=== PATIENT | female | born 1990 | race Caucasian/White ===

== ENCOUNTER 2017-03-10 06:28 | Inpatient (IN) | payer OTHER ==
[~2017-03-10] VITALS: Ht 149.9 cm; Wt 45.0 kg
[~2017-03-10 06:28] MED LIST: CHOL100062 PO; Calcium Carbonate PO; POTA20TA96 PO; PRENAT PO; UROCIT PO
[2017-03-10] MEDS ORDERED: ONDANSETRON 4 MG INJ IV STA (06:43)
--- NOTE | 2017-03-10 06:48 | ERA ---
ER Documentation Chief Complaint Date/Time DATE: 03/10/17 TIME: 06:44 Chief Complaint direct admit from [place] [facility] for Pyelonephritis, renal tubular acidosis Tp1 HPI 26-year-old female was sent from [facility] to be admitted to this hospital for pyelonephritis. Because there are no beds currently in the hospital should be housed in the emergency room will be under my care pending admission. Reviewed all the patient's EMR from [place]. She is being admitted for a mild urinary tract infection that has spread to her kidneys. She did have severe pain she said at the time. She was given 1 dose of morphine and actually has absolutely no pain whatsoever. She does have some nausea. Otherwise she feels well and was hoping to go home. It appears as though her vital signs have been stable throughout the duration of her course at [place]. ROS All systems reviewed and are negative except as per history of present illness. Medications Home Meds Active Scripts Potassium Citrate* (Urocit-K*) 5 Meq Tabsr, 10 MEQ PO BID for 30 Days, #60 TAB Prov:MELISA CASTRO MD 10/11/16 [Calcium Carbonate] 1.25 GM TAB No Conflict Check, 1.25 GM PO QID Prov:MELISA CASTRO MD 10/11/16 Reported Medications Cholecalciferol* (Vitamin D3*) 1,000 Unit Tablet, 2000 UNIT PO DAILY, TAB 09/15/16 Potassium Chloride* (Potassium Chloride*) 20 Meq Tablet.er, 20 MEQ PO TID, #2 TAB.SA 09/15/16 Multivit/Min/Fol Ac/Iron/Pren* ( S*) 1 Tab Tab, 1 TAB PO DAILY, TAB 09/15/16 Allergies Allergies: Coded Allergies: No Known Drug Allergies (Verified Allergy, Unknown, 10/07/16) PMhx/Soc History of Surgery: No Anesthesia Reaction: No Hx Neurological Disorder: No Hx Respiratory Disorders: No Hx Cardiac Disorders: No Hx Psychiatric Problems: No Hx Miscellaneous Medical Probl: No Hx Alcohol Use: No Hx Substance Use: No Hx Tobacco Use: No Physical Exam Vitals Vital Signs Date Time Temp Pulse Resp B/P Pulse Ox O2 Delivery O2 Flow Rate FiO2 03/10/17 06:31 97.4 70 18 102/58 100 Physical Exam Const: [] Very mild distress, appears uncomfortable Head: Atraumatic Eyes: Normal Conjunctiva ENT: Normal External Ears, Nose and Mouth. Neck: Full range of motion..~ No meningismus. Resp: Clear to auscultation bilaterally Cardio: Regular rate and rhythm, no murmurs Abd: Soft, very mild suprapubic tenderness without guarding or rebound, non distended. Normal bowel sounds Skin: No petechiae or rashes Back: No midline or flank tenderness Ext: No cyanosis, or edema Neur: Awake and alert and oriented 3, no focal deficits Psych: Normal Mood and Affect Procedures/MDM 26-year-old female with pyelonephritis. Pain control but nausea on arrival to ER. Administered Zofran as well as additional 500 mL of IV fluid. She will be admitted to the hospital Dr. Diallo for further management. Dr. Diallo has been notified of her arrival. I will continue to manage her symptoms until she is admitted. She received Rocephin at [place] and will not need another dose until approximately 24 hours after the first dose was given. Urine cultures from [place] are still pending. These will be followed to make sure that the Rocephin is appropriate antibiotic for the particular infection that she has. She is being admitted to the medical surgical floor. Departure Diagnosis: Primary Impression: Pyelonephritis Condition: Stable KAYLEEN MCGEE DO March 10, 2017 06:48
[2017-03-10] MEDS ORDERED: SOD CHLORIDE 0.9% 500 ML IV ONE (07:00)
[2017-03-10] MEDS ORDERED: morphine 2 MG INJ IV PRN (09:30)
[2017-03-10] MEDS ORDERED: HYDROCODONE/APAP (5/325) TAB PO PRN (09:30)
[2017-03-10] MEDS ORDERED: NACL 0.9% 3 ML SYG IV SCH (09:30)
[2017-03-10] MEDS ORDERED: ONDANSETRON 4 MG INJ IV PRN (09:30)
[2017-03-10] MEDS ORDERED: ACETAMINOPHEN 325 MG TAB PO PRN (09:30)
[2017-03-10] MEDS ORDERED: SOD CHLORIDE 0.9% 1,000 ML IV SCH (09:30)
[2017-03-10] MEDS: MULTIVIT/MIN/FOLATE/IRON/PREN TAB PO SCH (09:51)
[2017-03-10] MEDS: CHOLECALCIFEROL 1,000 UNIT TAB PO SCH (09:51)
[2017-03-10] MEDS: POTASSIUM CITRATE (SR) 5 MEQ TAB PO SCH ×2 (09:51→21:20)
[2017-03-10] MEDS: CEFTRIAXONE 1 GM/50 ML (PMX) 50 ML IVPB SCH (09:53)
--- NOTE | 2017-03-10 10:12 | CONS ---
DATE OF ADMISSION: 03/10/2017 DATE OF CONSULTATION: 03/10/2017 REFERRING PHYSICIAN: Dr. Hayes TYPE OF CONSULTATION: Nephrology. REASON FOR CONSULTATION: Renal tubular acidosis, hypokalemia, acute pyelonephritis. HISTORY OF PRESENT ILLNESS: This is a 26-year-old female who has a past medical history of renal tubular acidosis type 1 who has been on potassium citrate, Urocit-K 10 mEq p.o. b.i.d. Along with that, she has been also taking also potassium chloride 20 mEq p.o. t.i.d. The patient presented to the [facility] with a complaint of back pain, dysuria, fevers, weakness, fatigue and extremely tired. She is noted to have a dirty urinalysis and concern about acute pyelonephritis. She got transferred to the [facility] due to her insurance capitation and renal has been consulted for renal tubular acidosis, hypokalemia, acute pyelonephritis. At the time of my evaluation, she is currently hemodynamically stable. Denies complaining of back pain, nausea, dysuria, fever, chills. Denies any chest pain , palpitation, headache, dizziness, blurry vision, constipation, diarrhea, dysuria, increased urinary frequency. REVIEW OF SYSTEMS: As per HPI. Positive for back pain, dysuria, fever, chills , nausea. Other review of systems has been obtained and is negative except what is mentioned in the history of present illness. 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 Previous episodes of pyelonephritis. PAST SURGICAL HISTORY: None. SOCIAL HISTORY: Lives with her family, has a 4 kids, extremely stressed out with kids care. No smoking, alcohol or recreational drug use. FAMILY HISTORY: As per the patient, no family history of kidney disease or renal tubular acidosis runs in the family. PHYSICAL EXAMINATION: VITAL SIGNS: Temperature 97.1, heart rate is 73, respiration 18, blood pressure is 99/61. GENERAL: Awake, alert, in no acute distress. HEENT: Normal. Oropharynx clear. NECK: Supple, no JVD, no lymphadenopathy. LUNGS: Decreased breath sounds at both lung bases. No crackles, no wheezes. HEART: S1, S2, tachycardia, no murmur. ABDOMEN: Soft, nontender, nondistended. Bowel sounds are present. EXTREMITIES: No clubbing, cyanosis, or edema. BACK: The patient has severe CVA tenderness, right greater than the left. NEUROLOGICAL: Nonfocal, intact. PSYCHIATRIC: Appropriate affect and mood. SKIN: No allergic rash. CHIEF COMPLAINT: Positive for joint pain, diffuse muscle aches, tender to palpation all over the body. LABORATORY DATA/DIAGNOSTIC IMAGING: The patient has no labs done at the [facility], currently labs are pending, but her labs at the [facility] has been reviewed and is positive for acidosis and hypokalemia. IMPRESSION: This is a 26-year-old female who has been getting admitted for acute pyelonephritis. She was noted to have hypokalemia and also has a history of renal tubular acidosis which has been getting worse at this point. Renal has been consulted for: 1. Worsening metabolic acidosis likely secondary to renal tubular acidosis type 1. 2. Hypokalemia secondary to type 1 distal ____ . 3. Acute pyelonephritis. 4. History of previous episodes of pyelonephritis. 5. History of renal tubular acidosis type 1 who has been on Urocit-K10 mEq p.o. b.i.d. at home. PLAN: Thank you, Dr. Hayes, for this consultation. 1. I will continue the patient on Urocit-K 10 mEq p.o. b.i.d. for her renal tubular acidosis. 2. I will also continue her on potassium chloride 10 mEq p.o. t.i.d. for hypokalemia. Along with that I will switch her IV fluids from NS to D5 half NS with KCl 10 mEq to run at 100 mL hour. 3. IV antibiotics, ceftriaxone has been started for acute pyelonephritis. The patient is currently ordered to have some of the labs including a UA and urinalysis. She will be followed up along with hospitalist service. Thank you, Dr. Hayes, for this consultation. I will continue to follow this patient along with the hospitalist service. She is currently seen in the emergency room and will be getting admitted to the med/surg floor. Total Time spent in this patient evaluation, making plan of care, communicating with patient at bedside and communicating with Nursing staff took more than 60 minutes. All questions answerred with patient Dictated By: KOMAL BELLE MD, KP/ZARINA Conf#: [id number] DID#: [id number] MTDAntonio
--- NOTE | 2017-03-10 11:46 | HP ---
DATE OF ADMISSION: 03/10/2017 TIME OF EVALUATION: 9 a.m. REASON FOR ADMISSION: Transfer from [facility] because of suspected pyelonephritis. CONSULTANTS: 1. Dr. Kishor Schwartz, Nephrology. 2. Dr. Brayden Solano, Urology. HISTORY OF PRESENT ILLNESS: This is a 26-year-old female with past medical history of renal tubular acidosis who has been on bicarbonate replacement and potassium replacement who went to [facility] with a chief complaint of epigastric abdominal pain and low back pain that started on 03/09/2017 in the afternoon. The patient verbalized that she had this abdominal pain started all of a sudden without any triggering factors. The patient verbalized the abdominal pain as sharp and excruciating. The patient also verbalized a few episodes of nausea and nonbilious, nonbloody vomiting. The patient denied any fevers. However, the patient was complaining of chills. The patient denied any dysuria, hematuria, pyuria. The patient denied any sick contacts. In the emergency room at [facility], the patient was noticed to have a positive urinalysis. The patient was suspected to have a pyelonephritis. Hence, the patient transferred to [facility] because of insurance reasons. 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 PAST SURGICAL HISTORY: None. HOME MEDICATIONS: 1. Potassium chloride 20 mEq p.o. t.i.d. 2. Potassium citrate 10 mEq p.o. b.i.d. 3. Vitamin D3 2000 units p.o. daily. ALLERGIES: NO KNOWN DRUG ALLERGIES. SOCIAL HISTORY: The patient lives at home with her family. Denies any history of tobacco, alcohol, or illicit drugs. The patient has 4 kids. REVIEW OF SYSTEMS: A 12-point review of systems were made. Review of systems are negative other than what is mentioned in the history of present illness. PHYSICAL EXAMINATION: VITAL SIGNS: Temperature 98.1, pulse rate 75, respiratory rate 18, blood pressure 99/66, oxygen saturation 100% on room air. GENERAL: This is a well-built, well-nourished female lying in bed in no apparent distress. HEENT: Head normocephalic and atraumatic. Eyes: Anicteric sclerae. Conjunctivae clear. ENT: Nasal septum is midline. Oral mucosa is moist. NECK: Supple. No JVD noticed. RESPIRATORY: Bilaterally clear to auscultation. No adventitious breath sounds. No use of accessory muscles of respiration. CARDIAC: Regular rate and rhythm. No murmurs. ABDOMEN: Soft. Bowel sounds positive in all 4 quadrants. Minimal epigastric tenderness. GENITOURINARY: Bilateral CVA tenderness, right greater than left. EXTREMITIES: No cyanosis, no clubbing, no edema. Peripheral pulses palpable. NEUROLOGIC: The patient is awake, alert, and oriented. Cranial nerves are grossly intact. LABORATORY AND DIAGNOSTIC DATA: Pending lab and diagnostic data from [facility]. IMPRESSION: This is a 26-year-old female with known history of renal tubular acidosis type 1 and prior history of pyelonephritis who came to the emergency room with complaints of abdominal pain and back pain who was found to have evidence of urinary tract infection and underlying pyelonephritis. She will be admitted here for further treatment and evaluation. ASSESSMENT AND PLAN: 1. Acute urinary tract infection with possible underlying pyelonephritis. The patient was started on empiric antibiotics. Case cultures will be ordered. A urology consult will be obtained. The patient will be adequately hydrated using IV fluids. 2. Renal tubular acidosis type 1. The patient will be placed on a routine potassium supplements. Nephrology consult will be obtained. Plan. The patient will be admitted to inpatient medical/surgical floor. The patient will be started on a regular diet. The patient will be started on DVT prophylaxis and gastrointestinal prophylaxis. The patient will remain a FULL CODE. Activities will be as tolerated. The rest of the patient's management will be based on clinical course, the results of diagnostic studies, and inputs from consultants. Based on the patient's clinical presentation, she most probably requires at least 1 midnight's stay for further management and evaluation of her clinical presentation. The case and management of this patient was fully discussed with Dr. Márquez. KIMBERLY MÁRQUEZ MD, AM/ZARINA Conf#: [id number] DID#: [id number] MTDD
[2017-03-10 11:51] LABS: ADD SCAN DIFF NO
[2017-03-10 11:56] LABS: BASOPHIL # 0.1 10^3/ul (0.0-0.1); BASOPHILS % 0.5 % (0.0-2.0); EOSINOPHILS # 0.1 10^3/ul (0.0-0.5); EOSINOPHILS % 1.2 % (0.0-7.0); HEMATOCRIT 42.6 % (37.0-47.0); HEMOGLOBIN 13.3 g/dl (12.0-16.0); LYMPHOCYTES # 1.7 10^3/ul (0.8-2.9); LYMPHOCYTES % 16.6 % (15.0-51.0); MEAN CORPUSCULAR HEMOGLOBIN 25.9 pg (29.0-33.0); MEAN CORPUSCULAR HGB CONC 31.2 g/dl (32.0-37.0); MEAN PLATELET VOLUME 11.8 fl (7.4-10.4); MONOCYTE # 0.7 10^3/ul (0.3-0.9); MONOCYTES % 7.3 % (0.0-11.0); NEUTROPHIL # 7.5 10^3/ul (1.6-7.5); PLATELET COUNT 321 10^3/UL (140-415); RED BLOOD COUNT 5.13 10^6/ul (4.20-5.40); WHITE BLOOD COUNT 10.1 10^3/ul (4.8-10.8)
[2017-03-10] MEDS ORDERED: POTA10TA6 PO (12:05)
[2017-03-10] MEDS ORDERED: POTA20TA96 PO (12:06)
[2017-03-10] MEDS ORDERED: CALC300T4 PO (12:07)
[2017-03-10] MEDS ORDERED: CALC-143 PO (12:07)
[2017-03-10] MEDS ORDERED: CHOL100062 PO (12:09)
[2017-03-10 12:17] LABS: ALBUMIN 4.4 g/dl (3.3-4.9)
[2017-03-10 12:20] LABS: BILIRUBIN,INDIRECT 0.5 mg/dl (0-1.1); BILIRUBIN,TOTAL 0.5 mg/dl (0.2-1.3); CREATININE 0.77 mg/dl (0.44-1.00); TOTAL PROTEIN 7.7 g/dl (6.1-8.1)
[2017-03-10 12:21] LABS: ALBUMIN/GLOBULIN RATIO 1.33; CALCIUM 7.8 mg/dl (8.4-10.2); PHOSPHORUS 2.6 mg/dl (2.5-4.9); POTASSIUM 2.6 mmol/L (3.5-5.1)
[2017-03-10 12:22] LABS: MAGNESIUM 1.8 mg/dl (1.7-2.5)
--- NOTE | 2017-03-10 13:02 | RADRPT ---
PROCEDURE: Renal US. CLINICAL INDICATION: Flank pain, pyelonephritis. TECHNIQUE: Multiple sonographic images of the kidneys were obtained. The images were reviewed on a PACS workstation. COMPARISON: CT October 08, 2016 and ultrasound October 08, 2016 FINDINGS: The right kidney measures 9.0 cm. The left kidney measures 9.2 cm. Nephrocalcinosis throughout both kidneys continues to be identified. Moderate left hydronephrosis is identified. Questionable, mild right hydronephrosis is seen. No gross solid masses are seen. The bladder is filled with a moderate amount of urine and has an unremarkable appearance. IMPRESSION: Continued extensive nephrocalcinosis throughout both kidneys. Moderate left hydronephrosis and questionable mild right hydronephrosis. Etiology is uncertain. If further characterization is needed repeat CT could be helpful. RPTAT: AA .Piotr Tarango MD, Date Time Electronically viewed and signed by .Piotr Tarango MD, on 03/10/2017 13:02 .P/
[2017-03-10] MEDS: POTASSIUM CHLORIDE (SR) 20 MEQ TAB PO SCH ×2 (13:35→20:32)
[2017-03-10] MEDS: D5W-0.45 NACL + KCL 10 MEQ 1,000 ML IV SCH ×2 (13:36→21:21)
--- NOTE | 2017-03-10 15:18 | CONS ---
DATE OF ADMISSION: 03/10/2017 DATE OF CONSULTATION: 03/10/2017 TYPE OF CONSULTATION: Urology REQUESTING PHYSICIAN: Parker Hayes MD Dear Dr. Hayes: Thank you for asking me to see this patient in urological consultation. HISTORY OF PRESENT ILLNESS: This is a 26-year-old female who initially presented to [facility] complaining of epigastric pain with nausea and vomiting. She was transferred to [facility] because of her insurance. The patient also stated that she did have some chills and the urinalysis that was done showed positive nitrite; therefore, the patient was suspected to have pyel onephritis. PAST MEDICAL HISTORY: Very significant in that she does have a history of renal tubular acidosis ty pe 1 and she does have numerous stones in both kidneys. She did have a CT scan of her abdomen and p pradip back in October and that showed the kidneys to be full of stones on both sides. The patient has been seeing a electro winning operator and has been on potassium citrate and also potassium chloride. PAST SURGICAL HISTORY: The patient denies having any prior surgery. ALLERGIES: SHE HAS NO KNOWN DRUG ALLERGIES. SOCIAL HISTORY: She lives at home with her family. She done does not smoke or drink alcohol. Ther e is no history of drug abuse. She is a 4, para 4, all normal deliveries. REVIEW OF SYSTEMS: A 12-point review of system was made and they are all negative, except hat is me ntioned in the history of present illness. PHYSICAL EXAMINATION: GENERAL: Reveals a 26-year-old female. At the present, she states that she has no pain. She is fe eling better. VITAL SIGNS: Her temperature is 98.1, pulse rate 75, respirations 18, blood pressure 99/66. She we ighs 45 kg. She is 69 inches tall. HEAD AND NECK: Unremarkable. There is no cervical adenopathy and the neck is supple. ABDOMEN: Soft. There is no abdominal mass palpable and there is no tenderness at the present and n o flank tenderness. PELVIC: I did a pelvic exam on her. There is no vaginal discharge and no tenderness. EXTREMITIES: Reveal no edema, no varicose veins, and no clubbing. NEUROLOGIC: She has no neurological signs or symptoms. LABORATORY DATA: CBC shows a white count of 10.1, hemoglobin 13.3, hematocrit 42.6, platelet count 321,000. The BUN is 11, creatinine 0.77, sodium 145, potassium 2.6, chloride 116, CO2 of 15. The s kathy hCG is negative. IMAGING: The patient underwent a renal ultrasound and that showed continued extensive nephrocalcino sis throughout both kidneys, moderate left hydronephrosis and questionable mild right hydronephrosis , etiology is uncertain. If further characterization is needed, a repeat CT could be helpful. IMPRESSION: Renal tubular acidosis type I, bilateral extensive nephrocalcinosis, moderate left hydr onephrosis, mild right hydronephrosis and the patient does have hypokalemia. The patient is getting potassium citrate and potassium chloride as well and potassium in her IV. From a urological standp oint, the last time she was in the hospital, she had a very distended urinary bladder. At the prese nt, I would recommend that just to make sure if she does have a urinary tract infection, do straight catheterization and collect the urine for culture and sensitivity, and then cover her with antibiot ic based on the culture. As far as her kidney problems, she will need to follow up with her nephrol ogist and continue her potassium citrate and potassium chloride. Dictated By: ELISSA GONZALEZ/ZARINA Conf#: [id number] DID#: [id number]
[2017-03-10 17:12] VITALS: PULSE 71; TEMP 97.9
[2017-03-10 17:12] LABS: ADD UMIC YES; URINE BILIRUBIN (Dip) NEGATIVE (NEGATIVE); URINE BLOOD (Dip) TRACE (NEGATIVE); URINE COLOR LT. YELLOW (YELLOW); URINE GLUCOSE (Dip) NEGATIVE (NEGATIVE); URINE KETONES (Dip) NEGATIVE (NEGATIVE); URINE LEUKOCYTE ESTERASE (Dip) 2+ (NEGATIVE); URINE NITRITE (Dip) NEGATIVE (NEGATIVE); URINE TOTAL PROTEIN (Dip) NEGATIVE (NEGATIVE); URINE UROBILINOGEN (Dip) 0.2 E.U./dL (0.1-1.0)
[2017-03-10 17:22] LABS: URINE RBCS 0-2 /HPF (0)
[2017-03-10 17:23] LABS: SQUAMOUS EPITHELIAL CELL,UR RARE
[2017-03-10] MEDS: FAMOTIDINE 20 MG TAB PO SCH (20:32)
[2017-03-10 21:48] VITALS: BP 95/61; RESP 16
[2017-03-10 21:57] VITALS: Ht 149.9 cm; Wt 45.0 kg
[2017-03-11] MEDS: D5W-0.45 NACL + KCL 10 MEQ 1,000 ML IV SCH ×2 (05:00→09:08)
[2017-03-11 07:51] VITALS: BP 101/57; RESP 14
[2017-03-11] MEDS: POTASSIUM CITRATE (SR) 5 MEQ TAB PO SCH ×2 (09:07→20:36)
[2017-03-11] MEDS: POTASSIUM CHLORIDE (SR) 20 MEQ TAB PO SCH ×3 (09:07→20:32)
[2017-03-11] MEDS: MULTIVIT/MIN/FOLATE/IRON/PREN TAB PO SCH (09:07)
[2017-03-11] MEDS: FAMOTIDINE 20 MG TAB PO SCH ×2 (09:07→20:35)
[2017-03-11] MEDS: CHOLECALCIFEROL 1,000 UNIT TAB PO SCH (09:07)
[2017-03-11] MEDS: CEFTRIAXONE 1 GM/50 ML (PMX) 50 ML IVPB SCH (09:08)
--- NOTE | 2017-03-11 10:46 | CONS ---
Date/Time of Note Date/Time of Note DATE: 03/11/17 TIME: 10:40 Assessment/Plan Assessment/Plan Additional Assessment/Plan 1. Worsening metabolic acidosis likely secondary to renal tubular acidosis type 1. 2. Hypokalemia secondary to type 1 distal RTA 3. Acute pyelonephritis. 4. History of previous episodes of pyelonephritis. 5. History of renal tubular acidosis type 1 who has been on Urocit-K10 mEq p.o. b.i.d. at home. PLAN: continue K Citrate and K replacement Yesteday and K and HCo3 was very low, will order stat for today Continue IVF with KCl if K and HCO3 low then keep pt in house for it will follo wup IV abx for pyelonephritis Consultation Date/Type/Reason Admit Date/Time March 10, 2017 at 09:10 Initial Consult Date March Type of Consultation: NEPHROLOGY Reason for Consultation Renal tubular acidosis, Hypokalemia Referring Provider: JURGEN MÁRQUEZ 24 HR Interval Summary Free Text/Dictation doing ok, BP stable on IV abx , K low and HCo3 was low from yesterday Exam/Review of Systems Vital Signs Vitals Vital Signs Date Time Temp Pulse Resp B/P Pulse Ox O2 Delivery O2 Flow Rate FiO2 03/11/17 07:51 98.7 61 14 101/57 96 03/10/17 17:12 Room Air Intake and Output 03/10/17 03/10/17 03/11/17 15:00 23:00 07:00 Intake Total 50 ml 1000 ml 1090 ml Balance 50 ml 1000 ml 1090 ml Exam GENERAL: Awake, alert, in no acute distress. HEENT: Normal. Oropharynx clear. NECK: Supple, no JVD, no lymphadenopathy. LUNGS: Decreased breath sounds at both lung bases. No crackles, no wheezes. HEART: S1, S2, tachycardia, no murmur. ABDOMEN: Soft, nontender, nondistended. Bowel sounds are present. EXTREMITIES: No clubbing, cyanosis, or edema. BACK: The patient has severe CVA tenderness, right greater than the left. NEUROLOGICAL: Nonfocal, intact. PSYCHIATRIC: Appropriate affect and mood. SKIN: No allergic rash. Results Result Diagram: 03/10/17 1139 03/10/17 1139 Results 24 hrs Laboratory Tests Test 03/10/17 11:39 03/10/17 16:44 White Blood Count 10.1 # Red Blood Count 5.13 Hemoglobin 13.3 Hematocrit 42.6 Mean Corpuscular Volume 83.0 Mean Corpuscular Hemoglobin 25.9 L Mean Corpuscular Hemoglobin Concent 31.2 L Red Cell Distribution Width 16.0 H Platelet Count 321 Mean Platelet Volume 11.8 #H Neutrophils % 74.0 Lymphocytes % 16.6 Monocytes % 7.3 Eosinophils % 1.2 Basophils % 0.5 Nucleated Red Blood Cells % 0.0 Neutrophils # 7.5 Lymphocytes # 1.7 Monocytes # 0.7 Eosinophils # 0.1 Basophils # 0.1 Nucleated Red Blood Cells # 0.0 Sodium Level 145 H Potassium Level 2.6 *L Chloride Level 116 H Carbon Dioxide Level 15 L Anion Gap 17 H Blood Urea Nitrogen 11 Creatinine 0.77 Glucose Level 114 Lactic Acid Level 2.1 Calcium Level 7.8 L Phosphorus Level 2.6 Magnesium Level 1.8 Total Bilirubin 0.5 Direct Bilirubin 0.00 Indirect Bilirubin 0.5 Aspartate Amino Transf (AST/SGOT) 21 Alanine Aminotransferase (ALT/SGPT) 22 Alkaline Phosphatase 216 H Total Protein 7.7 Albumin 4.4 Globulin 3.30 H Albumin/Globulin Ratio 1.33 Vitamin D 1,25-Dihydroxy 42.1 Serum HCG, Qualitative NEGATIVE Urine Color LT. YELLOW Urine Clarity CLEAR Urine pH 7.5 Urine Specific [place] 1.010 Urine Ketones NEGATIVE Urine Nitrite NEGATIVE Urine Bilirubin NEGATIVE Urine Urobilinogen 0.2 E.U./dL Urine Leukocyte Esterase 2+ H Urine Microscopic RBC 0-2 Urine Microscopic WBC 2-5 Urine Squamous Epithelial Cells RARE Urine Hemoglobin TRACE Urine Glucose NEGATIVE Urine Total Protein NEGATIVE Medications Medications Current Medications Ondansetron HCl (Zofran Inj) 4 mg Q6H PRN IV NAUSEA AND/OR VOMITING; Start 03/10 at 09:30 Acetaminophen (Tylenol Tab) 650 mg Q6H PRN PO PAIN LEVEL 1-3 OR FEVER; Start at 09:30 Acetaminophen/ Hydrocodone Bitart ([place] (5/325)) 1 tab Q6H PRN PO MODERATE PAIN LEVEL 4-6; Start 03/10/17 at 09:30 Morphine Sulfate (morphine) 2 mg Q4H PRN IV SEVERE PAIN LEVEL 7-10; Start at 09:30 Famotidine 20 mg 20 mg Q12 PO Last administered on 03/11/17 09:07; Admin Dose 20 MG; Start 03/10/17 at 21:00 Ceftriaxone Sodium (Rocephin) 50 ml @ 100 mls/hr Q24H IVPB Last administered on 03/11/17 09:08; Admin Dose 100 MLS/HR; Start 03/10/17 at 09:30 Cholecalciferol (Vitamin D) 2,000 unit DAILY PO Last administered on 03/11/17 09:07; Admin Dose 2,000 UNIT; Start 03/10/17 at 09:30 Prenat Multivit/ [place]/Iron/Folic Ac ( S) 1 tab DAILY PO Last administered on 03/11/17 09:07; Admin Dose 1 TAB; Start 03/10/17 at 09:30 Potassium Chloride (Klor-Con 20) 20 meq TID PO Last administered on 03/11/17 09 :07; Admin Dose 20 MEQ; Start 03/10/17 at 13:00 Potassium Citrate 10 meq 10 meq BID PO Last administered on 03/11/17 09:07; Admin Dose 10 MEQ; Start 03/10/17 at 09:30 Potassium Chloride/Dextrose/ Sod Cl (D5-1/2ns + KCl 10 Meq) 1,000 ml @ 100 mls/ hr Q10H IV Last administered on 03/11/17 09:08; Admin Dose 100 MLS/HR; Start at 10:00 KOMAL BELLE MD March 11, 2017 10:46
[2017-03-11 11:54] LABS: ADD SCAN DIFF NO
[2017-03-11 11:56] LABS: BASOPHIL # 0.1 10^3/ul (0.0-0.1); BASOPHILS % 0.8 % (0.0-2.0); EOSINOPHILS # 0.2 10^3/ul (0.0-0.5); EOSINOPHILS % 2.7 % (0.0-7.0); HEMOGLOBIN 12.8 g/dl (12.0-16.0); LYMPHOCYTES # 2.2 10^3/ul (0.8-2.9); LYMPHOCYTES % 29.1 % (15.0-51.0); MEAN CORPUSCULAR HEMOGLOBIN 25.8 pg (29.0-33.0); MEAN CORPUSCULAR HGB CONC 30.5 g/dl (32.0-37.0); MEAN CORPUSCULAR VOLUME 84.5 fl (82.0-101.0); MEAN PLATELET VOLUME 11.6 fl (7.4-10.4); MONOCYTE # 0.8 10^3/ul (0.3-0.9); MONOCYTES % 10.9 % (0.0-11.0); NEUTROPHIL # 4.2 10^3/ul (1.6-7.5); NEUTROPHILS % 56.1 % (39.0-77.0); PLATELET COUNT 317 10^3/UL (140-415); RED BLOOD COUNT 4.97 10^6/ul (4.20-5.40); RED CELL DISTRIBUTION WIDTH 16.3 % (11.5-14.5); WHITE BLOOD COUNT 7.5 10^3/ul (4.8-10.8)
[2017-03-11 12:17] LABS: CREATININE 0.85 mg/dl (0.44-1.00)
[2017-03-11 12:18] LABS: CALCIUM 7.6 mg/dl (8.4-10.2); MAGNESIUM 1.6 mg/dl (1.7-2.5)
[2017-03-11 12:31] LABS: POTASSIUM 2.9 mmol/L (3.5-5.1)
[2017-03-11] MEDS ORDERED: POTASSIUM CHLORIDE 250 ML IVPB ONE (13:00)
--- NOTE | 2017-03-11 13:26 | PN ---
Date/Time of Note Date/Time of Note DATE: 03/11/17 TIME: 13:25 Assessment/Plan VTE Prophylaxis VTE Prophylaxis Intervention: SCD's Lines/Catheters IV Catheter Type (from [facility]): Peripheral IV Urinary Cath still in place: No Assessment/Plan Chief Complaint/Hosp Course 1. Moderate left hydronephrosis and questionable mild right hydronephrosis. Continue antibiotics. 2. Renal tubular acidosis, type 1. Being followed by Nephrology. On bicarbonate replacement and routine potassium supplement. 3. Nephrocalcinosis of B/L kidneys. Being followed by Urology. No evidence of any obstruction. 4. Fluids, electrolytes, and nutrition. Regular diet. 5. DVT prophylaxis. B/L SCDs. 6. Gastrointestinal prophylaxis. Histamine 2 receptor blockers. Plan. Continue antibiotics. Replete potassium and magnesium. Continue IVFs. Await clearance from Nephrology before discharge. Case discussed with Dr. Hayes. Problems: Subjective 24 Hr Interval Summary Free Text/Dictation Denies any abdominal pain. Denies any dysuria. Exam/Review of Systems Vital Signs Vitals Vital Signs Date Time Temp Pulse Resp B/P Pulse Ox O2 Delivery O2 Flow Rate FiO2 03/11/17 07:51 98.7 61 14 101/57 96 03/10/17 17:12 Room Air Intake and Output 03/10/17 03/10/17 03/11/17 14:59 22:59 06:59 Intake Total 50 ml 1000 ml 1090 ml Balance 50 ml 1000 ml 1090 ml Exam GENERAL: This is a well-built, well-nourished female lying in bed in no apparent distress. HEENT: Head normocephalic and atraumatic. Eyes: Anicteric sclerae. Conjunctivae clear. ENT: Nasal septum is midline. Oral mucosa is moist. NECK: Supple. No JVD noticed. RESPIRATORY: Bilaterally clear to auscultation. No adventitious breath sounds. No use of accessory muscles of respiration. CARDIAC: Regular rate and rhythm. No murmurs. ABDOMEN: Soft. Bowel sounds positive in all 4 quadrants. Minimal epigastric tenderness. GENITOURINARY: No CVA tenderness. EXTREMITIES: No cyanosis, no clubbing, no edema. Peripheral pulses palpable. NEUROLOGIC: The patient is awake, alert, and oriented. Cranial nerves are grossly intact. Results Result Diagram: 03/11/17 1115 03/11/17 1115 Results 24 hrs Laboratory Tests Test 03/10/17 16:44 03/11/17 11:15 Urine Color LT. YELLOW Urine Clarity CLEAR Urine pH 7.5 Urine Specific [place] 1.010 Urine Ketones NEGATIVE Urine Nitrite NEGATIVE Urine Bilirubin NEGATIVE Urine Urobilinogen 0.2 E.U./dL Urine Leukocyte Esterase 2+ H Urine Microscopic RBC 0-2 Urine Microscopic WBC 2-5 Urine Squamous Epithelial Cells RARE Urine Hemoglobin TRACE Urine Glucose NEGATIVE Urine Total Protein NEGATIVE White Blood Count 7.5 # Red Blood Count 4.97 Hemoglobin 12.8 Hematocrit 42.0 Mean Corpuscular Volume 84.5 Mean Corpuscular Hemoglobin 25.8 L Mean Corpuscular Hemoglobin Concent 30.5 L Red Cell Distribution Width 16.3 H Platelet Count 317 Mean Platelet Volume 11.6 H Neutrophils % 56.1 Lymphocytes % 29.1 Monocytes % 10.9 Eosinophils % 2.7 Basophils % 0.8 Nucleated Red Blood Cells % 0.0 Neutrophils # 4.2 Lymphocytes # 2.2 Monocytes # 0.8 Eosinophils # 0.2 Basophils # 0.1 Nucleated Red Blood Cells # 0.0 Sodium Level 141 Potassium Level 2.9 *L Chloride Level 110 Carbon Dioxide Level 17 L Anion Gap 17 H Blood Urea Nitrogen 13 Creatinine 0.85 Glucose Level 71 # Calcium Level 7.6 L Magnesium Level 1.6 L Medications Medications Current Medications Ondansetron HCl (Zofran Inj) 4 mg Q6H PRN IV NAUSEA AND/OR VOMITING; Start 03/10 at 09:30 Acetaminophen (Tylenol Tab) 650 mg Q6H PRN PO PAIN LEVEL 1-3 OR FEVER; Start at 09:30 Acetaminophen/ Hydrocodone Bitart ([place] (5/325)) 1 tab Q6H PRN PO MODERATE PAIN LEVEL 4-6; Start 03/10/17 at 09:30 Morphine Sulfate (morphine) 2 mg Q4H PRN IV SEVERE PAIN LEVEL 7-10; Start at 09:30 Famotidine 20 mg 20 mg Q12 PO Last administered on 03/11/17 09:07; Admin Dose 20 MG; Start 03/10/17 at 21:00 Ceftriaxone Sodium (Rocephin) 50 ml @ 100 mls/hr Q24H IVPB Last administered on 03/11/17 09:08; Admin Dose 100 MLS/HR; Start 03/10/17 at 09:30 Cholecalciferol (Vitamin D) 2,000 unit DAILY PO Last administered on 03/11/17 09:07; Admin Dose 2,000 UNIT; Start 03/10/17 at 09:30 Prenat Multivit/ [place]/Iron/Folic Ac ( S) 1 tab DAILY PO Last administered on 03/11/17 09:07; Admin Dose 1 TAB; Start 03/10/17 at 09:30 Potassium Chloride (Klor-Con 20) 20 meq TID PO Last administered on 03/11/17 12 :26; Admin Dose 20 MEQ; Start 03/10/17 at 13:00 Potassium Citrate 10 meq 10 meq BID PO Last administered on 03/11/17 09:07; Admin Dose 10 MEQ; Start 03/10/17 at 09:30 Potassium Chloride/Dextrose/ Sod Cl 1,000 ml @ 100 mls/hr Q10H IV Last administered on 03/11/17 09:08; Admin Dose 100 MLS/HR; Start 03/10/17 at 10:00 Potassium Chloride (KCl 40 MEQ/250 ML NS) 250 ml @ 62.5 mls/hr ONCE ONCE IVPB ; Start 03/11/17 at 13:00; Stop 03/11/17 at 16:59 Citric Acid/ Sodium Citrate (Bicitra) 30 ml TID PO ; Start 03/11/17 at 13:00 KIMBERLY BLANCA NP March 11, 2017 13:26
[2017-03-11] MEDS: CITRIC ACID/SODIUM CITRATE 15 ML CUP PO SCH ×2 (14:28→20:31)
[2017-03-11 19:56] VITALS: BP 94/55; RESP 18
--- NOTE | 2017-03-11 23:41 | PN ---
DATE: 03/11/2017 SUBJECTIVE: The patient at the present is feeling much better. She denies having any abdominal charlene n. No nausea or vomiting, and no dysuria. OBJECTIVE: VITAL SIGNS: Her temperature is 98.3, pulse 74, respiration 18, blood pressure 94/55. ABDOMEN: Soft. LABORATORY DATA: Her CBC shows a white count of 7.5, hemoglobin 12.8, hematocrit 42.0, platelet cou nt 317,000. The BUN is 13, creatinine is 0.85. Her potassium was 2.9, sodium 141, chloride 110, CO 2 of 17. The patient did receive potassium chloride and also she is on potassium citrate as well. The urine culture: No growth after 48 hours. On the ultrasound on the kidney that she had yesterday, which s howed moderate left hydronephrosis, questionable mild right hydronephrosis, and the patient does hav e extensive nephrocalcinosis throughout both kidneys. IMPRESSION: The patient does have a renal tubular acidosis and hypokalemia and, so far, the culture s have been negative. PLAN: To continue present treatment pending the final report of the urine culture. Dictated By: ELISSA GONZALEZ/ZARINA Conf#: [id number] DID#: [id number] CC: JURGEN MÁRQUEZ MD;*End*
[2017-03-12] MEDS ORDERED: POTASSIUM CHLORIDE (SR) 20 MEQ TAB PO ONE (00:12)
[2017-03-12 06:23] LABS: ADD SCAN DIFF NO
[2017-03-12 06:33] LABS: BASOPHIL # 0.1 10^3/ul (0.0-0.1); BASOPHILS % 0.6 % (0.0-2.0); EOSINOPHILS # 0.3 10^3/ul (0.0-0.5); EOSINOPHILS % 3.3 % (0.0-7.0); HEMATOCRIT 40.2 % (37.0-47.0); HEMOGLOBIN 12.4 g/dl (12.0-16.0); LYMPHOCYTES # 3.1 10^3/ul (0.8-2.9); LYMPHOCYTES % 36.9 % (15.0-51.0); MEAN CORPUSCULAR HEMOGLOBIN 25.4 pg (29.0-33.0); MEAN CORPUSCULAR HGB CONC 30.8 g/dl (32.0-37.0); MEAN CORPUSCULAR VOLUME 82.4 fl (82.0-101.0); MEAN PLATELET VOLUME 12.1 fl (7.4-10.4); MONOCYTE # 0.8 10^3/ul (0.3-0.9); MONOCYTES % 9.3 % (0.0-11.0); NEUTROPHIL # 4.2 10^3/ul (1.6-7.5); NEUTROPHILS % 49.4 % (39.0-77.0); PLATELET COUNT 324 10^3/UL (140-415); RED BLOOD COUNT 4.88 10^6/ul (4.20-5.40); RED CELL DISTRIBUTION WIDTH 16.4 % (11.5-14.5); WHITE BLOOD COUNT 8.5 10^3/ul (4.8-10.8)
[2017-03-12 07:16] LABS: MAGNESIUM 1.7 mg/dl (1.7-2.5); PHOSPHORUS 3.8 mg/dl (2.5-4.9)
[2017-03-12 07:29] VITALS: BP 101/55; RESP 18
[2017-03-12 07:31] LABS: CALCIUM 7.5 mg/dl (8.4-10.2); CREATININE 0.77 mg/dl (0.44-1.00); POTASSIUM 3.3 mmol/L (3.5-5.1)
[2017-03-12] MEDS: CITRIC ACID/SODIUM CITRATE 15 ML CUP PO SCH ×2 (08:52→13:01)
[2017-03-12] MEDS: POTASSIUM CITRATE (SR) 5 MEQ TAB PO SCH (08:52)
[2017-03-12] MEDS: FAMOTIDINE 20 MG TAB PO SCH (08:52)
[2017-03-12] MEDS: MULTIVIT/MIN/FOLATE/IRON/PREN TAB PO SCH (08:52)
[2017-03-12] MEDS: POTASSIUM CHLORIDE (SR) 20 MEQ TAB PO SCH ×2 (08:53→13:01)
[2017-03-12] MEDS: CHOLECALCIFEROL 1,000 UNIT TAB PO SCH (08:53)
[2017-03-12] MEDS: CEFTRIAXONE 1 GM/50 ML (PMX) 50 ML IVPB SCH (09:30)
--- NOTE | 2017-03-12 10:57 | CONS ---
Date/Time of Note Date/Time of Note DATE: 03/12/17 TIME: 10:53 Assessment/Plan Assessment/Plan Additional Assessment/Plan 1. Worsening metabolic acidosis likely secondary to renal tubular acidosis type 1. 2. Hypokalemia secondary to type 1 distal RTA 3. Acute pyelonephritis. 4. History of previous episodes of pyelonephritis. 5. History of renal tubular acidosis type 1 who has been on Urocit-K10 mEq p.o. b.i.d. at home. PLAN: continue K Citrate and K replacement [place] with her own PO meds need abx on discharge for pyelonephritis follow up with me in clinic in2-3weeks Consultation Date/Type/Reason Admit Date/Time March 10, 2017 at 09:10 Initial Consult Date March Type of Consultation: NEPHROLOGY Referring Provider: JURGEN MÁRQUEZ 24 HR Interval Summary Free Text/Dictation doing ok, BP stable, Exam/Review of Systems Vital Signs Vitals Vital Signs Date Time Temp Pulse Resp B/P Pulse Ox O2 Delivery O2 Flow Rate FiO2 03/12/17 07:29 97.9 63 18 101/55 99 03/10/17 17:12 Room Air Intake and Output 03/11/17 03/11/17 03/12/17 15:00 23:00 07:00 Intake Total 150 ml 1320 ml 1980 ml Balance 150 ml 1320 ml 1980 ml Exam GENERAL: Awake, alert, in no acute distress. HEENT: Normal. Oropharynx clear. NECK: Supple, no JVD, no lymphadenopathy. LUNGS: Decreased breath sounds at both lung bases. No crackles, no wheezes. HEART: S1, S2, tachycardia, no murmur. ABDOMEN: Soft, nontender, nondistended. Bowel sounds are present. EXTREMITIES: No clubbing, cyanosis, or edema. BACK: The patient has severe CVA tenderness, right greater than the left. NEUROLOGICAL: Nonfocal, intact. PSYCHIATRIC: Appropriate affect and mood. SKIN: No allergic rash. Results Result Diagram: 03/12/17 0458 03/12/17 0458 Results 24 hrs Laboratory Tests Test 03/11/17 11:15 03/12/17 04:58 White Blood Count 7.5 # 8.5 Red Blood Count 4.97 4.88 Hemoglobin 12.8 12.4 Hematocrit 42.0 40.2 Mean Corpuscular Volume 84.5 82.4 Mean Corpuscular Hemoglobin 25.8 L 25.4 L Mean Corpuscular Hemoglobin Concent 30.5 L 30.8 L Red Cell Distribution Width 16.3 H 16.4 H Platelet Count 317 324 Mean Platelet Volume 11.6 H 12.1 H Neutrophils % 56.1 49.4 Lymphocytes % 29.1 36.9 Monocytes % 10.9 9.3 Eosinophils % 2.7 3.3 Basophils % 0.8 0.6 Nucleated Red Blood Cells % 0.0 0.0 Neutrophils # 4.2 4.2 Lymphocytes # 2.2 3.1 H Monocytes # 0.8 0.8 Eosinophils # 0.2 0.3 Basophils # 0.1 0.1 Nucleated Red Blood Cells # 0.0 0.0 Sodium Level 141 139 Potassium Level 2.9 *L 3.3 L Chloride Level 110 116 H Carbon Dioxide Level 17 L 16 L Anion Gap 17 H 10 # Blood Urea Nitrogen 13 19 Creatinine 0.85 0.77 Glucose Level 71 # 82 Calcium Level 7.6 L 7.5 L Magnesium Level 1.6 L 1.7 Phosphorus Level 3.8 Medications Medications Current Medications Ondansetron HCl (Zofran Inj) 4 mg Q6H PRN IV NAUSEA AND/OR VOMITING; Start 03/10 at 09:30 Acetaminophen (Tylenol Tab) 650 mg Q6H PRN PO PAIN LEVEL 1-3 OR FEVER; Start at 09:30 Acetaminophen/ Hydrocodone Bitart ([place] (5/325)) 1 tab Q6H PRN PO MODERATE PAIN LEVEL 4-6; Start 03/10/17 at 09:30 Morphine Sulfate (morphine) 2 mg Q4H PRN IV SEVERE PAIN LEVEL 7-10; Start at 09:30 Famotidine 20 mg 20 mg Q12 PO Last administered on 03/12/17 08:52; Admin Dose 20 MG; Start 03/10/17 at 21:00 Ceftriaxone Sodium (Rocephin) 50 ml @ 100 mls/hr Q24H IVPB Last administered on 03/11/17 09:08; Admin Dose 100 MLS/HR; Start 03/10/17 at 09:30 Cholecalciferol (Vitamin D) 2,000 unit DAILY PO Last administered on 03/12/17 08:53; Admin Dose 2,000 UNIT; Start 03/10/17 at 09:30 Prenat Multivit/ [place]/Iron/Folic Ac ( S) 1 tab DAILY PO Last administered on 03/12/17 08:52; Admin Dose 1 TAB; Start 03/10/17 at 09:30 Potassium Chloride (Klor-Con 20) 20 meq TID PO Last administered on 03/12/17 08 :53; Admin Dose 20 MEQ; Start 03/10/17 at 13:00 Potassium Citrate (Urocit-K) 10 meq BID PO Last administered on 03/12/17 08:52 ; Admin Dose 10 MEQ; Start 03/10/17 at 09:30 Citric Acid/ Sodium Citrate (Bicitra) 30 ml TID PO Last administered on 08:52; Admin Dose 30 ML; Start 03/11/17 at 13:00 KOMAL BELLE MD March 12, 2017 10:57
--- NOTE | 2017-03-12 10:57 | PDOCDIS ---
Discharge Instructions DIAGNOSIS Discharge Diagnosis: Hydronephrosis. Renal tubular acidosis. CONDITION Patient Condition: Stable FOLLOW UP/APPOINTMENTS Appointments Kishor Schwartz MD Specialty: Nephrology Office Address: [id number] [place] [address] Office OTHER ORDERS: Other Orders: 1. Resume home medications. Complete the course of antibiotics. 2. Regular diet as tolerated. 3. Follow-up with Dr. Schwartz [nephrology] in 2 weeks. 4. Activities as tolerated. KIMBERLY BLANCA NP March 12, 2017 10:57
[2017-03-12] MEDS ORDERED: CIPR500T4 PO (10:58)
--- NOTE | 2017-03-12 11:50 | DS ---
DATE OF ADMISSION: 03/10/2017 DATE OF DISCHARGE: 03/12/2017 FINAL DIAGNOSES: 1. Moderate left hydronephrosis and possible mild right hydronephrosis with underlying pyelonephritis. 2. Renal tubular acidosis type 1. 3. Nephrocalcinosis of bilateral kidneys. CONSULTANTS: 1. Dr. Kishor Schwartz, Nephrology. 2. Dr. Brayden Solano, Urology. HOSPITAL COURSE: This is a 26-year-old female with past medical history of renal tubular acidosis, who has been on bicarbonate replacement and potassium replacement, who went to [facility] with chief complaint of epigastric abdominal pain and low back pain that started on 03/09/2017 in the afternoon. The patient verbalized that she had this abdominal pain that started all of a sudden without any triggering factors. The patient verbalized the pain was sharp and excruciating. The patient also verbalized a few episodes of nausea and nonbilious, nonbloody vomiting. The patient denied any fevers. However, the patient was complaining of chills. The patient denied any dysuria, hematuria, or polyuria. The patient denied any sick contacts. In the emergency room at [facility], the patient was noticed to have a positive urinalysis. The patient was also suspected to have pyelonephritis. Hence, the patient was transferred to [facility] because of insurance reasons. The patient was admitted to inpatient medical/surgical floor. The patient was started on empiric antibiotics. Pancultures were ordered. The patient was started on adequate hydration. Nephrology and urology consults were called on this patient. Although the patient's urine culture was negative, the patient's renal ultrasound showed moderate left hydronephrosis and questionable right hydronephrosis. The patient also had significant CVA tenderness upon physical examination. Hence, the patient was treated for pyelonephritis. The patient had no evidence of any septic shock. The patient has underlying renal tubular acidosis. The patient was being followed by nephrology. The patient was maintained on bicarbonate replacement and routine potassium supplement. The patient had underlying metabolic acidosis secondary to renal tubular acidosis that was managed by nephrology. The patient was also noticed to have bilateral nephrocalcinosis of the kidneys. The patient was being followed by urology. The patient had no evidence of any obstructive uropathy. The patient's symptomatology improved. The patient had a stable hospital course. The patient was cleared by consultants to be discharged home. The patient denied any complaints at the time of discharge. DISCHARGE PLAN: The patient will be discharged home today. The patient was instructed to take a regular diet as tolerated. The patient was instructed to resume her home medications and to complete the course of antibiotics. The patient was instructed to follow up with Dr. Schwartz in 2 weeks. The patient was instructed to resume activities as tolerated. The patient verbalized understanding of her discharge instructions. CONDITION AT DISCHARGE: Stable. DISCHARGE PHYSICAL EXAM: GENERAL: This is a well-built, well-nourished female lying in bed in no apparent distress. HEENT: Head normocephalic and atraumatic. Eyes: Anicteric sclerae. Conjunctivae clear. ENT: Nasal septum is midline. Oral mucosa is moist. NECK: Supple. No JVD noticed. RESPIRATORY: Bilaterally clear to auscultation. No adventitious breath sounds. No use of accessory muscles of respiration. CARDIAC: Regular rate and rhythm. No murmurs. ABDOMEN: Soft. Bowel sounds positive in all 4 quadrants. Minimal epigastric tenderness. GENITOURINARY: No CVA tenderness. EXTREMITIES: No cyanosis, no clubbing, no edema. Peripheral pulses palpable. NEUROLOGIC: The patient is awake, alert, and oriented. Cranial nerves are grossly intact. DISCHARGE MEDICATIONS: 1. Ciprofloxacin 500 mg p.o. b.i.d. 2. Calcium carbonate 600 mg p.o. b.i.d. 3. Citracal/vitamin D 200/250 one tablet p.o. b.i.d. 4. Vitamin D3 1000 units p.o. daily. 5. Potassium chloride 40 mEq p.o. q.i.d. 6. Potassium citrate 40 mEq p.o. b.i.d. PERTINENT LABORATORY AND DIAGNOSTIC DATA: 1. Renal ultrasound. Continued extensive nephrocalcinosis throughout both kidneys. Moderate left hydronephrosis and questionable mild right hydronephrosis. 2. Blood culture x2, negative. 3. Urine culture, negative. 4. Latest CBC: WBC 8.5, hemoglobin 12.4, hematocrit 40.2, platelet count 324. 5. Latest BMP: Sodium 139, potassium 3.3, chloride 116, carbon dioxide 16, anion gap 10, BUN 9, creatinine 0.77, glucose 92, calcium 7.5, phosphorous 3.8, magnesium 1.7. 6. Urinalysis. Urine nitrite negative, leukocyte esterase 2+, urine microscopic WBC 2 to 5. At this time, I would like to thank all the consultants for seeing the patient and providing clinical recommendations. The case and management of this patient was fully discussed with Dr. Márquez. KIMBERLY MÁRQUEZ MD, AM/ZARINA Conf#: [id number] DID#: [id number]
== END 2017-03-12 14:15 | disposition home or self-care (01) | DRG 690 ==
LOC: E/R 06:28 → MS2 09:10
PROVIDERS: ADMIT Family Medicine; ATTEND Family Medicine
DX: N12 Tubulo-interstitial nephritis, not specified as acute or chronic (principal); N13.30 Unspecified hydronephrosis; E87.6 Hypokalemia; N25.89 Other disorders resulting from impaired renal tubular function; N18.9 Chronic kidney disease, unspecified
CPT/HCPCS: 76775; 80048; 80053; 81001; 81003; 82306; 82652; 83605; 83735; 84100; 84703; 85025; 87040; 87086; 96365; 96375; A4310; J0696; J2405; J3480; J7030; J7040

== ENCOUNTER 2017-11-12 02:06 | Inpatient (IN) | END 2017-11-28 15:35 | disposition home or self-care (01) | DRG 767 ==

== ENCOUNTER 2018-06-07 08:03 | Inpatient (IN) | END 2018-06-08 17:55 | disposition home or self-care (01) | DRG 641 ==